=== PATIENT | female | born 1995 | race Caucasian/White ===

== ENCOUNTER → 2017-12-25 | Outpatient (REF) | payer BC | LOC: M LAB REF 19:32 | DX: M54.5 Low back pain (principal) ==

== ENCOUNTER → 2018-04-17 | Outpatient (CLI) | payer BC ==
[2018-04-17 09:17] LABS: HEMATOCRIT 34.7 % (36.0-47.0); HEMOGLOBIN 11.6 g/dl (12.0-15.5); MEAN CORPUSCULAR HEMOGLOBIN 30.4 pg (27.0-33.0); MEAN CORPUSCULAR HGB CONC 33.4 g/dl (32.0-36.5); MEAN CORPUSCULAR VOLUME 91.1 fl (80.0-96.0); PLATELET COUNT, AUTOMATED 265 10^3/uL (150-450); RED BLOOD COUNT 3.81 10^6/uL (4.00-5.40); RED CELL DISTRIBUTION WIDTH 12.8 % (11.5-14.5); WHITE BLOOD COUNT 10.2 10^3/uL (4.0-10.0)
[2018-04-17 09:56] LABS: ALBUMIN 2.2 GM/DL (3.2-5.2); ALBUMIN/GLOBULIN RATIO 0.61 (1.00-1.93); ALKALINE PHOSPHATASE 63 U/L (45-117); ALT/SGPT 18 U/L (12-78); AMYLASE 32 U/L (25-115); AST/SGOT 14 U/L (7-37); BILIRUBIN,DIRECT < 0.1 MG/DL (0.0-0.2); BILIRUBIN,TOTAL 0.3 MG/DL (0.2-1.0); GLUCOSE CHALLENGE TEST 1 HOUR 127 MG/DL (LESS THAN 140); LIPASE 125 U/L (73-393); TOTAL PROTEIN 5.8 GM/DL (6.4-8.2)
[2018-04-18 09:02] LABS: TYPE AND SCREEN 1 1
== END ==
LOC: M LAB 07:25
DX: Z34.82 Encounter for supervision of other normal pregnancy, second trimester (principal); Z3A.00 Weeks of gestation of pregnancy not specified
CPT/HCPCS: 82150

== ENCOUNTER → 2018-06-21 | Outpatient (REF) | payer BC | LOC: M LAB REF 13:51 | DX: Z34.83 Encounter for supervision of other normal pregnancy, third trimester (principal) | CPT/HCPCS: 87081 ==

== ENCOUNTER 2018-07-28 11:02 | Inpatient (IN) | payer BC ==
[2018-07-28 12:14] LABS: HEMATOCRIT 32.9 % (36.0-47.0); HEMOGLOBIN 10.5 g/dl (12.0-15.5); MEAN CORPUSCULAR HEMOGLOBIN 26.8 pg (27.0-33.0); MEAN CORPUSCULAR HGB CONC 31.9 g/dl (32.0-36.5); MEAN CORPUSCULAR VOLUME 83.9 fl (80.0-96.0); PLATELET COUNT, AUTOMATED 258 10^3/uL (150-450); RED BLOOD COUNT 3.92 10^6/uL (4.00-5.40); RED CELL DISTRIBUTION WIDTH 15.3 % (11.5-14.5); WHITE BLOOD COUNT 12.6 10^3/uL (4.0-10.0)
[2018-07-28] MEDS: miSOPROStol 50 MCG 1/2 TAB (S0191) PO ×2 (12:26→16:15)
[2018-07-28] MEDS: LR 1,000 ML IV ×2 (16:00→17:00)
[2018-07-28] MEDS ORDERED: FENTANYL 2MCG/ML ROPIVACAINE 0.2% IN 0.9% NACL 200ML IVBAG As Ordered (16:14)
[2018-07-28] MEDS: FENTANYL/ROPIVACAINE/NACL BAG 200 ML EPIDURAL (17:13)
[2018-07-28] MEDS ORDERED: EPIDURAL COMMENT XX (18:15)
[2018-07-28] MEDS ORDERED: ePHEDrine SULFATE 25 MG/5 ML(5MG/ML) SYRINGE IV (18:15)
[2018-07-28] MEDS ORDERED: EPIDURAL/PCA KEYS XX (18:15)
[2018-07-28] MEDS ORDERED: ONDANSETRON 4MG/2ML VIAL (J2405) IV ×4 (18:15→23:30)
[2018-07-28] MEDS ORDERED: diphenhydrAMINE INJ 50MG/ML VIAL (J1200) IV (18:15)
[2018-07-28] MEDS ORDERED: REFRIGERATOR IV KEYS XX (18:15)
[2018-07-28] MEDS ORDERED: NALOXONE INJ 0.4 MG/1 ML VIAL (J2310) IV ×3 (18:15→22:00)
[2018-07-28] MEDS ORDERED: LACTATED RINGER'S 1000 ML IV (18:15)
[2018-07-28] MEDS: BICITRA 30ML SOLN UDC PO (21:44)
[2018-07-28] MEDS ORDERED: MORPHINE PRES-FREE INJ 10 MG/10 ML VIAL (J2274) As Ordered (21:44)
[2018-07-28] MEDS ORDERED: LIDOCAINE 2% W/EPIN INJ 20ML **PRES FREE As Ordered (21:45)
[2018-07-28] MEDS ORDERED: OXYTOCIN INJ 10 UNITS/ML VIAL (J2590) As Ordered ×5 (21:47→22:31)
[2018-07-28] MEDS ORDERED: NALBUPHINE HCL 10 MG/ML AMP (J2300) IV ×2 (22:00→23:30)
[2018-07-28] MEDS ORDERED: LIDOCAINE PRES-FREE 2% 10ML AMP As Ordered (22:07)
[2018-07-28] MEDS ORDERED: MIDAZOLAM INJ 2 MG/2 ML VIAL (J2250) As Ordered (22:16)
[2018-07-28] MEDS ORDERED: KETAMINE HCL 200 MG/20 ML VIAL As Ordered (22:17)
[2018-07-28] MEDS ORDERED: fentaNYL 100 MCG/2 ML INJECTION (J3010) As Ordered (22:29)
[2018-07-28] MEDS ORDERED: KETOROLAC 60 MG/2 ML VIAL (J1885) As Ordered (22:33)
[2018-07-28] MEDS ORDERED: ONDANSETRON 4MG/2ML VIAL (J2405) As Ordered (22:33)
[2018-07-28] MEDS ORDERED: OXYTOCIN DRIP 30 UNITS in APPROPRIATE DILUENT 1 EA IV (22:57)
[2018-07-28] MEDS: OXYTOCIN DRIP 30 UNITS in APPROPRIATE DILUENT 1 EA IV (22:57)
[2018-07-28] MEDS ORDERED: DOCUSATE SODIUM 100 MG CAP PO (23:00)
[2018-07-28] MEDS ORDERED: MEASLES,MUMPS,RUBELLA VACCINE INJ (MMR-II) (90707) SC (23:00)
[2018-07-28] MEDS ORDERED: METOCLOPRAMIDE INJ 10MG/2ML VIAL (J2765) IV (23:30)
[2018-07-28] MEDS ORDERED: PERCOCET 5MG/325MG TAB PO (23:30)
[2018-07-28] MEDS ORDERED: fentaNYL 100 MCG/2 ML INJECTION (J3010) IV (23:30)
[2018-07-28] MEDS ORDERED: HYDROMORPHONE HCL 0.5 MG/ 0.5 ML SYRINGE (J1170 PER 1) IV (23:30)
[2018-07-28] MEDS ORDERED: MEPERIDINE INJ 25 MG/ML VIAL (J2175) IV (23:30)
[2018-07-29] MEDS ORDERED: fentaNYL 100 MCG/2 ML INJECTION (J3010) As Ordered
[2018-07-29] MEDS: METOCLOPRAMIDE INJ 10MG/2ML VIAL (J2765) IV (01:57)
[2018-07-29] MEDS: LR 1,000 ML IV ×2 (02:12→22:50)
[2018-07-29] MEDS: KETOROLAC 30 MG/ML VIAL (J1885) IV ×3 (05:27→17:21)
[2018-07-29 07:05] LABS: HEMATOCRIT 23.9 % (36.0-47.0); MEAN CORPUSCULAR HEMOGLOBIN 27.5 pg (27.0-33.0); MEAN CORPUSCULAR HGB CONC 33.1 g/dl (32.0-36.5); MEAN CORPUSCULAR VOLUME 83.3 fl (80.0-96.0); PLATELET COUNT, AUTOMATED 199 10^3/uL (150-450); RED BLOOD COUNT 2.87 10^6/uL (4.00-5.40); RED CELL DISTRIBUTION WIDTH 15.5 % (11.5-14.5); WHITE BLOOD COUNT 17.3 10^3/uL (4.0-10.0)
[2018-07-29 07:08] LABS: HEMOGLOBIN 7.9 g/dl (12.0-15.5)
[2018-07-29] MEDS: PRENATAL VITAMINS CHEWABLE TABLET PO (09:00)
[2018-07-29] MEDS: FAMOTIDINE 20 MG TAB PO ×2 (12:31→20:47)
[2018-07-29] MEDS: PERCOCET 5MG/325MG TAB PO ×2 (15:32→22:51)
[2018-07-29 23:07] LABS: HEMATOCRIT 25.1 % (36.0-47.0); MEAN CORPUSCULAR HEMOGLOBIN 27.2 pg (27.0-33.0); MEAN CORPUSCULAR HGB CONC 31.9 g/dl (32.0-36.5); MEAN CORPUSCULAR VOLUME 85.4 fl (80.0-96.0); PLATELET COUNT, AUTOMATED 210 10^3/uL (150-450); RED BLOOD COUNT 2.94 10^6/uL (4.00-5.40); WHITE BLOOD COUNT 17.9 10^3/uL (4.0-10.0)
[2018-07-30] MEDS: SIMETHICONE 80 MG CHEW TAB PO ×3 (00:04→21:17)
[2018-07-30] MEDS: IBUPROFEN 800 MG TAB PO ×3 (01:27→17:35)
[2018-07-30] MEDS: PERCOCET 5MG/325MG TAB PO ×3 (06:05→21:20)
[2018-07-30] MEDS: FAMOTIDINE 20 MG TAB PO ×2 (08:12→21:15)
[2018-07-30] MEDS: PRENATAL VITAMINS CHEWABLE TABLET PO (08:12)
[2018-07-30 14:11] LABS: FETAL SCREEN PROF. 1 1
[2018-07-30] MEDS: RHOGAM 300 MCG (1500 IU) INJ (J2790) IM (14:20)
[2018-07-31] MEDS: IBUPROFEN 800 MG TAB PO ×2 (00:27→07:40)
[2018-07-31] MEDS: PERCOCET 5MG/325MG TAB PO ×2 (06:57→11:26)
[2018-07-31] MEDS: FAMOTIDINE 20 MG TAB PO (07:39)
[2018-07-31] MEDS: PRENATAL VITAMINS CHEWABLE TABLET PO (07:40)
== END 2018-07-31 12:50 | disposition home or self-care (01) | DRG 540 ==
LOC: M LDI 11:02 → M OBS 07-29 01:12
PROVIDERS: Specialist
PROC: 10D00Z1 Extraction of Products of Conception, Low, Open Approach (ICD-10-PCS; principal; 2018-07-28 09:02)
PROC: 0UB50ZZ Excision of Right Fallopian Tube, Open Approach (ICD-10-PCS; 2018-07-28 09:02)
PROC: 3E0P7GC Introduction of Other Therapeutic Substance into Female Reproductive, Via Natural or Artificial Opening (ICD-10-PCS; 2018-07-28 09:02)
DX: O48.0 Post-term pregnancy (principal); Z3A.41 41 weeks gestation of pregnancy; O64.0XX0 Obstructed labor due to incomplete rotation of fetal head, not applicable or unspecified; O69.81X0 Labor and delivery complicated by cord around neck, without compression, not applicable or unspecified; O26.893 Other specified pregnancy related conditions, third trimester; N83.8 Other noninflammatory disorders of ovary, fallopian tube and broad ligament; Z37.0 Single live birth